=== PATIENT | female | born 1935 | race Caucasian/White ===

== ENCOUNTER 2017-02-11 20:21 | Emergency (ER) | payer MEDICARE, OTHER ==
[~2017-02-11] VITALS: Ht 157.5 cm; Wt 68.5 kg
[~2017-02-11 20:21] MED LIST: ALEN70TA30 PO; ATOR10TA65 PO; CHOL2000 PO; DONE10TA7 PO; FAMO40TA52 PO; LIRA0.6P2 SQ; LOSA1TAB19 PO; MEMA7CAP PO; MONT10TA24 PO; OMEP40CA6 PO; PARO-37 PO
[2017-02-11 20:36] VITALS: Ht 157.5 cm; Wt 68.5 kg
--- NOTE | 2017-02-11 23:23 | ERA ---
ER Documentation Chief Complaint Date/Time DATE: 02/11/17 TIME: 23:22 Chief Complaint Dizziness and weakness, Headache and vomiting HPI The patient is a 81-year-old female, presenting to the ER because of occipital discomfort, dizziness, vomiting 5 initially food then mucus. The symptoms started at 10 AM. She had similar symptoms previously, denies syncope, near syncope, neck pain, chest pain, dyspnea, abdominal pain, dyspnea, diarrhea, constipation. She does not smoke does not drink Past medical history: Dyslipidemia, diabetes mellitus, hypertension Past surgical history: None ROS All systems reviewed and are negative except as per history of present illness. Medications Home Meds Active Scripts Sulfamethoxazole-Trimethoprim* (Bactrim* DS) 800-160 Mg Tab, 1 TAB PO BID for 7 Days, TAB Prov:YURI BROWN MD 02/12/17 Ondansetron (Ondansetron Odt) 4 Mg Tab.rapdis, 4 MG PO Q6H Y for NAUSEA AND/OR VOMITING, #10 TAB Prov:YURI BROWN MD 02/12/17 Meclizine Hcl* (Meclizine Hcl*) 25 Mg Tablet, 25 MG PO Q8H Y for DIZZINESS, #20 TAB Prov:YURI BROWN MD 02/12/17 Reported Medications Liraglutide (Victoza 3-Pratik) 0.6 Mg/0.1 Ml Pen.injctr, 0.6 MG SQ DAILY, SYR 07/19/15 Alendronate Sodium* (Fosamax*) 70 Mg Tablet, 70 MG PO Q7D, TAB 07/19/15 Famotidine* (Famotidine*) 40 Mg Tablet, 40 MG PO HS, TAB 07/19/15 Omeprazole* (Omeprazole*) 40 Mg Capsule.dr, 40 MG PO DAILY, CAP 07/19/15 Memantine* (Namenda* XR) 7 Mg Cap.spr.24, 7 MG PO DAILY, TAB 07/19/15 Losartan-Hydrochlorothiazide (Losartan-HCTZ) 50-12.5 Mg Tab, 1 TAB PO DAILY, TAB 07/19/15 Cholecalciferol* (Vitamin D3*) 2,000 Unit Cap, 2000 UNIT PO DAILY, CAP 07/19/15 Montelukast Sodium* (Montelukast Sodium*) 10 Mg Tablet, 10 MG PO HS, TAB 07/19/15 Donepezil* (Donepezil*) 10 Mg Tablet, 10 MG PO DAILY, TAB 07/19/15 Paroxetine Hcl* (Paroxetine*) 20 Mg Tablet, 20 MG PO HS, TAB 07/19/15 Atorvastatin Calcium (Atorvastatin Calcium) 10 Mg Tab, 40 MG PO HS, TAB 07/19/15 Allergies Allergies: Coded Allergies: No Known Allergy (Unverified , 07/19/15) PMhx/Soc History of Surgery: Yes (colon ca, cholecystectomy) Anesthesia Reaction: No Hx Neurological Disorder: No Hx Respiratory Disorders: No Hx Cardiac Disorders: Yes (htn) Hx Psychiatric Problems: No Hx Miscellaneous Medical Probl: Yes (dm) Hx Alcohol Use: No Hx Substance Use: No Hx Tobacco Use: No Physical Exam Vitals Vital Signs Date Time Temp Pulse Resp B/P Pulse Ox O2 Delivery O2 Flow Rate FiO2 02/12/17 03:12 98.0 70 18 140/66 100 Room Air 02/12/17 01:34 98.0 70 18 128/71 95 Room Air 02/11/17 20:36 98.0 89 20 147/70 95 Physical Exam Const: No acute distress. Head: Atraumatic. Eyes: Normal Conjunctiva. ENT: Normal External Ears, Nose and Mouth. Bilateral tympanic membranes and oropharynx are within normal Neck: Full range of motion. No meningismus. Resp: Clear to auscultation bilaterally. Cardio: Regular rate and rhythm, no murmurs. Abd: Soft, non distended, normal bowel sounds, non tender. Skin: No petechiae or rashes. Back: No midline or flank tenderness. Ext: No cyanosis, or edema. Neur: Awake and alert. No focal deficit Psych: Normal Mood and Affect. Result Diagram: 02/11/17 0004 02/11/17 0004 Results 24 hrs Laboratory Tests Test 02/11/17 00:04 02/11/17 20:48 02/12/17 00:14 White Blood Count 11.110^3/ul Red Blood Count 4.7610^6/ul Hemoglobin 14.9g/dl Hematocrit 44.3% Mean Corpuscular Volume 93.1fl Mean Corpuscular Hemoglobin 31.3pg Mean Corpuscular Hemoglobin Concent 33.6g/dl Red Cell Distribution Width 12.3% Platelet Count 77112^3/UL Mean Platelet Volume 11.5fl Neutrophils % 77.0% Lymphocytes % 17.3% Monocytes % 5.0% Eosinophils % 0.1% Basophils % 0.2% Nucleated Red Blood Cells % 0.0/100WBC Neutrophils # 8.510^3/ul Lymphocytes # 1.910^3/ul Monocytes # 0.610^3/ul Eosinophils # 0.010^3/ul Basophils # 0.010^3/ul Nucleated Red Blood Cells # 0.010^3/ul Prothrombin Time 11.9Sec Prothrombin Time Ratio 0.9 INR International Normalized Ratio 0.88 Activated Partial Thromboplast Time 26.4Sec Sodium Level 136mmol/L Potassium Level 3.8mmol/L Chloride Level 100mmol/L Carbon Dioxide Level 28mmol/L Anion Gap 12 Blood Urea Nitrogen 18mg/dl Creatinine 0.52mg/dl Glucose Level 263mg/dl Calcium Level 9.5mg/dl Total Bilirubin 0.3mg/dl Direct Bilirubin 0.00mg/dl Indirect Bilirubin 0.3mg/dl Aspartate Amino Transf (AST/SGOT) 26IU/L Alanine Aminotransferase (ALT/SGPT) 34IU/L Alkaline Phosphatase 115IU/L Troponin I < 0.012ng/ml Total Protein 7.8g/dl Albumin 4.3g/dl Globulin 3.50g/dl Albumin/Globulin Ratio 1.22 Bedside Glucose 238mg/dL Bedside Urine pH (LAB) 5.5 Bedside Urine Protein (LAB) 1+ Bedside Urine Glucose (UA) 0.50% Bedside Urine Ketones (LAB) 1+ Bedside Urine Blood Trace-lysed Bedside Urine Nitrite (LAB) Positive Bedside Urine Leukocyte Esterase (L 2+ Current Medications Medications (Trade) Dose Ordered Sig/Hari Route PRN Reason Start Time Stop Time Status Last Admin Dose Admin Meclizine HCl (Antivert) 25 mg ONCE ONCE PO 02/12/17 00:30 02/12/17 00:31 DC 02/12/17 00:21 Ondansetron HCl (Zofran Inj) 4 mg ONCE STAT IV 02/12/17 00:16 02/12/17 00:17 DC 02/12/17 00:21 Ondansetron HCl (Zofran Inj) 4 mg STK-MED ONCE .ROUTE 02/12/17 00:21 02/12/17 00:22 DC Ondansetron HCl 4 mg 4 mg ONCE STAT IV 02/12/17 02:03 02/12/17 02:04 DC 02/12/17 02:08 Sodium Chloride (NS) 500 ml @ 500 mls/hr Q1H ONCE IV 02/12/17 02:30 02/12/17 03:13 DC 02/12/17 02:24 Procedures/MDM [place] [address] Radiology Main Line: [phone] DIAGNOSTIC IMAGING REPORT Patient: ARTURO COOL : 1935 Age: 81 Sex: F MR #: [id number] DOS: 02/11/17 2324 Ordering MD: YURI BROWN MD Location: E/R Room/Bed: PROCEDURE: CT Head without. CLINICAL INDICATION: Syncope, headache. TECHNIQUE: The study was performed utilizing a multi-slice, multidetector CT scanner. Direct spiral 1 mm axial sections were obtained through the head without the use of intravenous contrast material. 1 or more of the following dose reduction techniques were utilized: Automated exposure control, adjustment of the mA and/or kV according to patient's size, iterative reconstruction technique. Coronal and sagittal reformations were obtained. The images were reviewed on a PACS workstation. RADIATION DOSE: CTDIvol: 44.6 mGy DLP: 720.2 mGy-cm COMPARISON: 07/06/2012 FINDINGS: There is no intracranial hemorrhage, extra-axial fluid collection, mass lesion, midline shift or hydrocephalus. There is stable mild to moderate prominence of the cerebral sulci, lateral and third ventricles. There is stable mild periventricular and subcortical white matter hypodensity. There is mild arteriosclerotic calcification of the parasellar internal carotid arteries. The carrizales-white matter differentiation is preserved. The basal cisterns are patent. The midline structures are intact. The orbits, calvarium and extracranial soft tissues are normal in appearance. The visualized paranasal sinuses, mastoid air cells and middle ear cavities are normally aerated. IMPRESSION: 1. No significant interval change compared to 07/06/2012. No acute intracranial abnormality. No intracranial hemorrhage, extra-axial fluid collection, mass lesion or hydrocephalous. 2. Stable mild to moderate peripheral and central cerebral volume loss. 3. Stable mild periventricular and subcortical white matter hypodensity, likely related to chronic microangiopathic changes. RPTAT: HGAS .Mike Summers MD, MD Date Time Electronically viewed and signed by .Mike Summers MD, MD on 02/12/2017 00: 49 .S/ CC: YURI BROWN MD MEDICAL MAKING DECISION: The patient is a 81-year-old female, presenting with acute dizziness of unclear etiology, acute cystitis, acute diabetic hyperglycemia. She was treated with Zofran 4 mg IV 2 for nausea, Antivert 25 mg p.o. for dizziness, normal saline for her in the mail for acute diabetic hyperglycemia with good response The differential diagnoses considered include but are not limited to central causes such as cerebellar infarct, cerebellar hemorrhage, cerebellar tumor, acoustic neuroma, peripheral causes such as benign positional vertigo, labyrinthitis, medication, Meniere's disease. EKG: Read by emergency physician Rate/Rhythm: Normal Sinus Rhythm 78 beats/min QRS, ST, T-waves: No ST elevation, no T inversion Impression: Normal EKG Departure Diagnosis: Primary Impression: Dizziness Additional Impressions: UTI (urinary tract infection) Diabetes mellitus with hyperglycemia Condition: Good Comments She was discharged with Antivert, Zofran ODT, Bactrim DS I discussed the findings with the patient. I advised the patient to follow-up with the primary physician in about 1-2 days, sooner if needed and return if any concern. YURI BROWN MD Feb 11, 2017 23:23
[2017-02-12 00:14] LABS: URINE BLOOD (Dip) POC Trace-lysed (NEGATIVE)
[2017-02-12] MEDS ORDERED: ONDANSETRON 4 MG INJ IV STA ×2 (00:16→02:03)
[2017-02-12 00:19] LABS: ADD SCAN DIFF NO
[2017-02-12] MEDS ORDERED: ONDANSETRON 4 MG INJ ONE (00:21)
[2017-02-12 00:27] LABS: BASOPHILS % 0.2 % (0.0-2.0); EOSINOPHILS % 0.1 % (0.0-7.0); HEMATOCRIT 44.3 % (37.0-47.0); HEMOGLOBIN 14.9 g/dl (12.0-16.0); LYMPHOCYTES # 1.9 10^3/ul (0.8-2.9); LYMPHOCYTES % 17.3 % (15.0-51.0); MEAN CORPUSCULAR HEMOGLOBIN 31.3 pg (29.0-33.0); MEAN CORPUSCULAR HGB CONC 33.6 g/dl (32.0-37.0); MEAN CORPUSCULAR VOLUME 93.1 fl (82.0-101.0); MEAN PLATELET VOLUME 11.5 fl (7.4-10.4); MONOCYTE # 0.6 10^3/ul (0.3-0.9); NEUTROPHIL # 8.5 10^3/ul (1.6-7.5); PLATELET COUNT 213 10^3/UL (140-415); RED BLOOD COUNT 4.76 10^6/ul (4.20-5.40); RED CELL DISTRIBUTION WIDTH 12.3 % (11.5-14.5); WHITE BLOOD COUNT 11.1 10^3/ul (4.8-10.8)
[2017-02-12] MEDS ORDERED: MECLIZINE 12.5 MG TAB PO ONE (00:30)
--- NOTE | 2017-02-12 00:50 | RADRPT ---
PROCEDURE: CT Head without. CLINICAL INDICATION: Syncope, headache. TECHNIQUE: The study was performed utilizing a multi-slice, multidetector CT scanner. Direct spira l 1 mm axial sections were obtained through the head without the use of intravenous contrast materia l. 1 or more of the following dose reduction techniques were utilized: Automated exposure control, adjustment of the mA and/or kV according to patient's size, iterative reconstruction technique. Co tiffanie and sagittal reformations were obtained. The images were reviewed on a PACS workstation. RADIATION DOSE: CTDIvol: 44.6 mGyDLP: 720.2 mGy-cm COMPARISON: 07/06/2012 FINDINGS: There is no intracranial hemorrhage, extra-axial fluid collection, mass lesion, midline shift or hyd rocephalus. There is stable mild to moderate prominence of the cerebral sulci, lateral and third ve ntricles. There is stable mild periventricular and subcortical white matter hypodensity. There is mild arteriosclerotic calcification of the parasellar internal carotid arteries. The carrizales-white mat ter differentiation is preserved. The basal cisterns are patent. The midline structures are intact . The orbits, calvarium and extracranial soft tissues are normal in appearance. The visualized para nasal sinuses, mastoid air cells and middle ear cavities are normally aerated. IMPRESSION: 1. No significant interval change compared to 07/06/2012. No acute intracranial abnormality. No i ntracranial hemorrhage, extra-axial fluid collection, mass lesion or hydrocephalous. 2. Stable mild to moderate peripheral and central cerebral volume loss. 3. Stable mild periventricular and subcortical white matter hypodensity, likely related to chronic microangiopathic changes. RPTAT: HGAS .Mike Summers MD, Date Time Electronically viewed and signed by .Mike Summers MD, on 02/12/2017 00:49 .S/
[2017-02-12 00:53] LABS: INR 0.88; PROTIME 11.9 Sec (12.2-14.2); PT RATIO 0.9
[2017-02-12 00:54] LABS: PARTIAL THROMBOPLASTIN TIME 26.4 Sec (25.0-35.0)
--- NOTE | 2017-02-12 01:15 | RADRPT ---
PROCEDURE: XR Chest. CLINICAL INDICATION: Syncope. TECHNIQUE: Single frontal view of the chest. COMPARISON: None. FINDINGS: Cardiomegaly and mild atherosclerotic calcifications in the thoracic aorta. Mild left lung base air space disease. Mild pulmonary vascular ingestion. Likely hyperinflation of COPD with changes of c entrolobular emphysema. Lungs otherwise substantially clear. No signs of pleural fluid or pneumoth orax are seen. The osseous structures and soft tissues are unremarkable. IMPRESSION: 1. Mild pulmonary vascular ingestion. 2. Mild atelectasis at the left lung base. RPTAT: [facility] Physician Bettie Date Time Electronically viewed and signed by Physician Bettie on 02/12/2017 01:15 RS/
[2017-02-12 01:39] LABS: ALANINE AMINOTRANSFERASE 34 IU/L (13-69); ALBUMIN 4.3 g/dl (3.3-4.9); ALBUMIN/GLOBULIN RATIO 1.22; ALKALINE PHOSPHATASE 115 IU/L (42-121); ANION GAP 12 (8-16); ASPARTATE AMINO TRANSFERASE 26 IU/L (15-46); BILIRUBIN,INDIRECT 0.3 mg/dl (0-1.1); BILIRUBIN,TOTAL 0.3 mg/dl (0.2-1.3); BLOOD UREA NITROGEN 18 mg/dl (7-20); CALCIUM 9.5 mg/dl (8.4-10.2); CARBON DIOXIDE 28 mmol/L (21-31); CHLORIDE 100 mmol/L (97-110); CREATININE 0.52 mg/dl (0.44-1.00); GLUCOSE 263 mg/dl (70-220); POTASSIUM 3.8 mmol/L (3.5-5.1); SODIUM 136 mmol/L (135-144); TOTAL PROTEIN 7.8 g/dl (6.1-8.1)
[2017-02-12 01:54] LABS: TROPONIN-I < 0.012 ng/ml (0.00-0.12)
[2017-02-12] MEDS ORDERED: SOD CHLORIDE 0.9% 500 ML IV ONE (02:30)
[2017-02-12] MEDS ORDERED: MECL-77 PO (03:02)
[2017-02-12] MEDS ORDERED: BACTDS PO (03:03)
[2017-02-12] MEDS ORDERED: ONDA4TAB14 PO (03:03)
[2017-02-12 03:12] VITALS: BP 140/66; PULSE 70; RESP 18; TEMP 98
== END 2017-02-12 03:12 | disposition home or self-care (01) ==
LOC: E/R 20:21
DX: R42 Dizziness and giddiness (principal); N39.0 Urinary tract infection, site not specified; E11.65 Type 2 diabetes mellitus with hyperglycemia; I10 Essential (primary) hypertension; R55 Syncope and collapse; R11.10 Vomiting, unspecified
CPT/HCPCS: 36415; 70450; 71010; 80053; 81003; 82962; 84484; 85025; 85610; 85730; 93005; 96374; 96376; 99285; J2405; J7040

== ENCOUNTER 2018-04-19 18:36 | Emergency (ER) | END 2018-04-19 23:48 | disposition home or self-care (01) ==